=== PATIENT | male | born 1950 | race African-American/Black ===

== ENCOUNTER 2017-06-17 07:28 | Outpatient (CLI) | payer MEDICARE, BC ==
[2017-06-17] MEDS ORDERED: Iopamidol 370 76% 100 ML VIAL ONE (09:00)
--- NOTE | 2017-06-17 09:57 | CT ---
CT OF THE ABDOMEN AND PELVIS WITHOUT AND WITH CONTRAST: COMPARISON: None. History Hematuria. History of lymphoma. TECHNIQUE: Multiple contiguous axial images were obtained in a CT of the abdomen and pelvis without and with con trast. Post-contrast images were obtained in nephrographic and expiratory phases. Coronal reformats were performed. FINDINGS: There is a 5.4 cm parapelvic cyst in the left kidney. A smaller subcentimeter hypodensity in the lef t kidney also likely represents a cyst. No calculi are seen in either kidney. No hydronephrosis is present. No abnormality is seen in either ureter or within the urinary bladder. The liver, gallbladder, right kidney, adrenal glands, spleen, and pancreas are unremarkable. No free air, free fluid, or stranding changes are seen in the abdomen or pelvis. There is scattered diverticula in the colon. The small bowel and appendix are normal. No abdominal or pelvic lymphadenopathy are seen. Atherosclerotic calcifications are seen in the aorta. Visualized inferior thorax is unremarkable. There is a 2.4 cm fat-containing umbilical hernia. Dege nerative changes are seen in the spine. IMPRESSION: 1. Left renal cysts. 2. Diverticulosis. POS: [facility]
== END 2017-06-17 07:29 | disposition home or self-care (01) ==
LOC: SCSCT 07:28
PROVIDERS: ATTEND Urology
DX: R31.21 Asymptomatic microscopic hematuria (principal); N28.1 Cyst of kidney, acquired; K57.90 Diverticulosis of intestine, part unspecified, without perforation or abscess without bleeding
CPT/HCPCS: 74178

== ENCOUNTER 2020-02-05 12:43 | Outpatient (CLI) | payer MEDICARE, BC ==
--- NOTE | 2020-02-05 14:19 | RAD ---
EXAM: CERVICAL SPINE FOUR VIEWS INCLUDING OBLIQUE VIEWS: 02/05/20 HISTORY: Neck pain. FINDINGS: C6, C7, and T1 are obscured on the lateral view. Multilevel disc osteophytosis changes are noted. No prevertebral soft tissue swelling. There is fairly extensive bilateral foraminal narrowing from C2-C3 down to and including C5-C6. No overt malalignment. IMPRESSION: Extensive spondylosis. Fairly marked narrowing of right and left foramina from C2-C3 through C5-C6. POS: OFF
== END 2020-02-05 12:44 | disposition home or self-care (01) ==
LOC: RAD 12:43
PROVIDERS: ATTEND Family Medicine
DX: M54.2 Cervicalgia (principal); M47.812 Spondylosis without myelopathy or radiculopathy, cervical region; M48.02 Spinal stenosis, cervical region
CPT/HCPCS: 72050

== ENCOUNTER 2021-08-06 05:26 | Outpatient (CLI) | payer MEDICARE, BC ==
[2021-08-06 23:51] LABS: SARS-CoV-2 PCR by NAA Not Detected (NotDetected)
== END 2021-08-06 05:27 | disposition home or self-care (01) ==
LOC: LABBT 05:26
PROVIDERS: ATTEND Internal Medicine
DX: Z86.010 Personal history of colon polyps (principal); Z20.822 Contact with and (suspected) exposure to COVID-19
CPT/HCPCS: U0003; U0005

== ENCOUNTER 2021-08-10 06:08 | Day surgery (SDC) | payer MEDICARE, BC ==
[2021-08-03 09:49] VITALS: BMI 45.9
[2021-08-10] MEDS ORDERED: PROPOFOL 200 MG/20 ML VIAL ONE (08:18)
== END 2021-08-10 09:51 | disposition home or self-care (01) ==
LOC: SDC 06:08
PROVIDERS: ATTEND Internal Medicine
PROC: 0DBH8ZX Excision of Cecum, Via Natural or Artificial Opening Endoscopic, Diagnostic (ICD-10-PCS; principal; 2021-08-10)
PROC: 0DBL8ZX Excision of Transverse Colon, Via Natural or Artificial Opening Endoscopic, Diagnostic (ICD-10-PCS; 2021-08-10)
DX: Z12.11 Encounter for screening for malignant neoplasm of colon (principal); D12.0 Benign neoplasm of cecum; D12.3 Benign neoplasm of transverse colon; K57.30 Diverticulosis of large intestine without perforation or abscess without bleeding; K64.8 Other hemorrhoids; I10 Essential (primary) hypertension; G47.30 Sleep apnea, unspecified; Z86.010 Personal history of colon polyps; Z87.891 Personal history of nicotine dependence; Z79.899 Other long term (current) drug therapy; Z88.0 Allergy status to penicillin; Z91.013 Allergy to seafood; Z91.041 Radiographic dye allergy status
CPT/HCPCS: 88305